=== PATIENT | male | born 1990 | race Hispanic/Latino ===

== ENCOUNTER 2019-01-30 15:35 | Emergency (ER) | payer OTHER ==
[2019-01-30] MEDS ORDERED: LIDOCAINE HCL-MPF 1% 2ML VIAL ONE (16:28)
[2019-01-30] MEDS ORDERED: KETOROLAC TROMETHAMINE 60 MG/2 ML VIAL ONE (16:29)
[2019-01-30] MEDS ORDERED: CEFTRIAXONE SODIUM 1 GM ONE (16:29)
== END 2019-01-30 17:26 | disposition home or self-care (01) ==
LOC: EDH 15:35
DX: K02.9 Dental caries, unspecified (principal)
CPT/HCPCS: 96372 ×2; 99284; J0696; J1885; J3490